=== PATIENT | female | born 1935 | race Caucasian/White ===

== ENCOUNTER 2023-08-27 14:50 | Inpatient (IN) | payer MEDICARE, OTHER ==
[2023-08-27] MEDS ORDERED: Dexamethasone 10 MG/ML VIAL ONE (15:26)
[2023-08-27] MEDS ORDERED: Magnesium 2 GM/50 ML BAG (IN WATER) ONE (15:26)
[2023-08-27] MEDS ORDERED: Albuterol 2.5 MG (3 mL) NEB ONE (15:50)
[2023-08-27] MEDS ORDERED: Ipratropium/Albuterol 3 ML NEB ONE (15:51)
[2023-08-27 15:57] LABS: #Eosinphils 0.2 10x3/uL (0.0-0.5); #Monocytes 0.7 10x3/uL (0.0-1.1); #Neutrophils 3.8 10x3/uL (1.5-8.4); %Basophils 0.6 % (0.0-2.0); %Eosinophils 2.7 % (0.0-6.0); %Lymphocytes 34.6 % (18.0-47.0); %Monocytes 9.1 % (0.0-10.0); Hematocrit 41.7 % (34.9-44.5); Hemoglobin 13.4 g/dL (12.0-15.5); Mean Corpuscular HGB CONC 32.1 g/dL (32.0-36.0); Mean Corpuscular Hemoglobin 30.5 pg (27.0-33.0); Mean Platelet Volume 9.8 fl (7.4-10.4); Platelet Count 330 10x3/uL (150-450); RBC Distribution Width 14.2 % (11.5-14.5); Red Blood Cell (RBC) Count 4.39 10x6/uL (3.90-5.03); White Blood Cell (WBC) Count 7.1 10x3/uL (3.5-10.5)
[2023-08-27 16:05] LABS: ALT (SGPT) 13 U/L (8-55); AST (SGOT) 17 U/L (5-34); Albumin 4.2 g/dL (3.4-4.8); Alkaline Phosphatase 85 U/L (40-110); Anion Gap 12 mmol/L (10-20); BUN (Urea Nitrogen) 18 mg/dL (9.8-20.1); Bilirubin, Total 0.3 mg/dL (0.2-1.2); Calc. Creatinine Clearance 0 mL/min (70-130); Calcium 9.3 mg/dL (7.8-10.44); Carbon Dioxide 30 mmol/L (23-31); Chloride 103 mmol/L (98-107); Estimated GFR 67; Globulin 2.5 g/dL (2.4-3.5); Glucose 105 mg/dL (83-110); Lipase 51 U/L (8-78); Protein, Total 6.7 g/dL (5.8-8.1)
[2023-08-27 16:10] LABS: Troponin I 0.016 ng/mL (< 0.028)
[2023-08-27 16:16] LABS: Potassium 4.3 mmol/L (3.5-5.1); Sodium 141 mmol/L (136-145)
[2023-08-27] MEDS ORDERED: Bisacodyl 5 MG TAB PO PRN (17:43)
[2023-08-27] MEDS ORDERED: Bisacodyl 10 MG SUPP PR PRN (17:43)
[2023-08-27] MEDS ORDERED: Acetaminophen 325 MG TAB PO PRN (17:43)
[2023-08-27] MEDS ORDERED: Ipratropium/Albuterol 3 ML NEB NEB PRN (17:43)
[2023-08-27] MEDS ORDERED: Senokot S 8.6-50 MG TAB PO PRN (17:43)
[2023-08-27] MEDS ORDERED: Ondansetron PF 4 MG/2 ML Vial IVP PRN (17:43)
[2023-08-27] MEDS ORDERED: Furosemide 40 MG (4 mL) VIAL ONE (18:33)
[2023-08-27] MEDS ORDERED: Furosemide 20 MG (2 mL) VIAL SLOW IVP SCH (20:00)
[2023-08-27] MEDS ORDERED: cefTRIAXone\\ROCEPHIN 1 GM in Sodium Chloride 0.9% 100 ML IVPB SCH (20:00)
[2023-08-27] MEDS ORDERED: Mometasone/Formoterol 200/5 60 PUFF INH SCH (20:30)
[2023-08-27] MEDS ORDERED: Ipratropium/Albuterol 3 ML NEB NEB SCH (20:30)
[2023-08-27] MEDS: Famotidine/PF 20 mg/2ml Vial SLOW IVP SCH (20:52)
[2023-08-27] MEDS ORDERED: Zolpidem Tartrate 5 MG TAB PO PRN (22:08)
[2023-08-27 22:57] VITALS: BMI 31.1
[2023-08-27 23:01] LABS: Legionella Urinary Ag Negative (Negative); Strep pneumo Urine Ag NEGATIVE (NEGATIVE)
[2023-08-27 23:46] LABS: SARS-CoV-2 NAA Rapid Test DETECTED (NotDetected)
[2023-08-28] MEDS ORDERED: Ipratropium/Albuterol 3 ML NEB NEB SCH (01:00)
[2023-08-28 04:07] LABS: #Monocytes 0.1 10x3/uL (0.0-1.1); #Neutrophils 4.5 10x3/uL (1.5-8.4); %Basophils 0.2 % (0.0-2.0); %Eosinophils 0.2 % (0.0-6.0); %Lymphocytes 15.9 % (18.0-47.0); %Monocytes 2.5 % (0.0-10.0); Hematocrit 40.9 % (34.9-44.5); Hemoglobin 13.6 g/dL (12.0-15.5); Mean Corpuscular HGB CONC 33.3 g/dL (32.0-36.0); Mean Corpuscular Hemoglobin 30.8 pg (27.0-33.0); Mean Corpuscular Volume 92.5 fl (81.6-98.3); Mean Platelet Volume 9.9 fl (7.4-10.4); Platelet Count 316 10x3/uL (150-450); RBC Distribution Width 14.1 % (11.5-14.5); Red Blood Cell (RBC) Count 4.42 10x6/uL (3.90-5.03); White Blood Cell (WBC) Count 5.6 10x3/uL (3.5-10.5)
[2023-08-28 04:15] LABS: ALT (SGPT) 12 U/L (8-55); AST (SGOT) 17 U/L (5-34); Albumin 3.9 g/dL (3.4-4.8); Alkaline Phosphatase 74 U/L (40-110); Anion Gap 13 mmol/L (10-20); BUN (Urea Nitrogen) 17 mg/dL (9.8-20.1); Bilirubin, Direct 0.1 mg/dL (0.1-0.3); Bilirubin, Total 0.3 mg/dL (0.2-1.2); Calc. Creatinine Clearance 64 mL/min (70-130); Carbon Dioxide 29 mmol/L (23-31); Chloride 101 mmol/L (98-107); Estimated GFR 73; Glucose 144 mg/dL (83-110); Magnesium 2.2 mg/dL (1.6-2.6); Potassium 3.8 mmol/L (3.5-5.1); Protein, Total 6.7 g/dL (5.8-8.1); Sodium 139 mmol/L (136-145)
[2023-08-28] MEDS ORDERED: Ventolin HFA Inhaler 60 PUFF INHALER INH PRN (05:39)
[2023-08-28] MEDS ORDERED: Furosemide 20 MG (2 mL) VIAL SLOW IVP SCH (06:00)
[2023-08-28] MEDS ORDERED: Mometasone/Formoterol 200/5 60 PUFF INH SCH (06:30)
[2023-08-28] MEDS ORDERED: Ventolin HFA Inhaler 60 PUFF INHALER INH SCH (07:00)
[2023-08-28 08:31] LABS: Free T4 (Free Thyroxine) 1.24 ng/dL (0.70-1.48)
[2023-08-28] MEDS ORDERED: predniSONE 20 MG TAB PO SCH (09:00)
[2023-08-28] MEDS ORDERED: Enoxaparin 40 MG (0.4 mL) SYRINGE SC SCH (09:00)
[2023-08-28 09:04] VITALS: BP 133/76; TEMP 96.3
[2023-08-28] MEDS: Famotidine/PF 20 mg/2ml Vial SLOW IVP SCH (10:03)
[2023-08-28] MEDS ORDERED: ALPRAZolam 0.25 MG TAB PO PRN (11:21)
[2023-08-28] MEDS ORDERED: Lorazepam 0.5 MG TAB PO PRN (11:22)
[2023-08-28 16:33] LABS: Hemoglobin A1c 5.7 % (4.0-6.0)
[2023-08-28] MEDS ORDERED: LevoFLOXacin 750 mg/D5W 750 MG in Premix 1 BAG IVPB SCH (17:00)
[2023-08-30 22:37] LABS: Mycoplasma pneumoniae IgG AB 629 U/mL (0-99); Mycoplasma pneumoniae IgM AB Less than 770 U/mL (0-769)
== END 2023-08-28 12:55 | disposition home or self-care (01) | DRG 177 ==
LOC: SUATTDRO 14:50 → CSHERS 14:50 → CSHTELE 16:57
PROVIDERS: ADMIT Family Medicine; ATTEND Family Medicine
PROC: 3E0333Z Introduction of Anti-inflammatory into Peripheral Vein, Percutaneous Approach (ICD-10-PCS; principal; 2023-08-27)
PROC: 8E0ZXY6 Isolation (ICD-10-PCS; 2023-08-27)
DX: U07.1 COVID-19 (principal); I50.33 Acute on chronic diastolic (congestive) heart failure; J96.01 Acute respiratory failure with hypoxia; J12.82 Pneumonia due to coronavirus disease 2019; J44.1 Chronic obstructive pulmonary disease with (acute) exacerbation; Z66 Do not resuscitate; Z51.5 Encounter for palliative care; I25.10 Atherosclerotic heart disease of native coronary artery without angina pectoris; F41.9 Anxiety disorder, unspecified; F32.A Depression, unspecified; E03.9 Hypothyroidism, unspecified; I25.2 Old myocardial infarction; S92.901D Unspecified fracture of right foot, subsequent encounter for fracture with routine healing; Z95.818 Presence of other cardiac implants and grafts; Z88.5 Allergy status to narcotic agent; Z88.0 Allergy status to penicillin; Z88.7 Allergy status to serum and vaccine; Z79.890 Hormone replacement therapy; Z79.2 Long term (current) use of antibiotics; Z79.899 Other long term (current) drug therapy; Z85.51 Personal history of malignant neoplasm of bladder
CPT/HCPCS: 0241U; 36415; 71045; 80048; 80053; 80076; 83036; 83605; 83690; 83735; 83880; 84439; 84443; 84481; 84484; 85025; 86850; 86900; 86901; 87040; 87449; 87899; 93005; 94640; 94664; 94762; J0696; J1100; J1650; J1940; J3475; J3490; J7512; J7611; J7620; S0028

== ENCOUNTER 2023-09-10 21:32 | Emergency (ER) | payer MEDICARE, OTHER ==
[2023-09-11 00:12] LABS: #Eosinphils 0.1 10x3/uL (0.0-0.5); #Monocytes 0.7 10x3/uL (0.0-1.1); #Neutrophils 5.3 10x3/uL (1.5-8.4); %Basophils 0.5 % (0.0-2.0); %Eosinophils 1.1 % (0.0-6.0); %Lymphocytes 21.8 % (18.0-47.0); %Monocytes 9.1 % (0.0-10.0); %Neutrophils 67.2 % (40.0-75.0); Hematocrit 39.1 % (34.9-44.5); Mean Corpuscular HGB CONC 33.2 g/dL (32.0-36.0); Mean Corpuscular Hemoglobin 30.9 pg (27.0-33.0); Mean Corpuscular Volume 92.9 fl (81.6-98.3); Platelet Count 335 10x3/uL (150-450); RBC Distribution Width 13.9 % (11.5-14.5); Red Blood Cell (RBC) Count 4.21 10x6/uL (3.90-5.03); White Blood Cell (WBC) Count 7.9 10x3/uL (3.5-10.5)
[2023-09-11 00:28] LABS: ALT (SGPT) 10 U/L (8-55); AST (SGOT) 18 U/L (5-34); Albumin 3.7 g/dL (3.4-4.8); Alkaline Phosphatase 76 U/L (40-110); Anion Gap 17 mmol/L (10-20); BUN (Urea Nitrogen) 12 mg/dL (9.8-20.1); Bilirubin, Total 0.4 mg/dL (0.2-1.2); Calc. Creatinine Clearance 0 mL/min (70-130); Calcium 9.1 mg/dL (7.8-10.44); Carbon Dioxide 25 mmol/L (23-31); Chloride 103 mmol/L (98-107); Estimated GFR 70; Globulin 2.5 g/dL (2.4-3.5); Glucose 87 mg/dL (83-110); Potassium 3.5 mmol/L (3.5-5.1); Protein, Total 6.2 g/dL (5.8-8.1); Sodium 141 mmol/L (136-145)
[2023-09-11 00:56] LABS: Bilirubin Neg (Negative); Blood, Urine 250 (Negative); Clarity Cloudy (Clear); Glucose, Urine (Dipstick) Normal (Negative); Ketone, Urine 150 mg/dL (Negative); Leukocyte 100 (Negative); Nitrite Negative (Negative); Protein, Urine (Dipstick) 100 mg/dl (Neg-Trace); Specific Gravity, Urine 1.025 (1.005-1.030); Urobilinogen Normal mg/dL (Less than 2)
[2023-09-11 01:07] LABS: Bacteria/HPF Rare-Few HPF (None Seen); CAUTI Indications for Culture Alt mental st,lethar; RBC/HPF Greater than 50 HPF (0-3); Squamous Epithelial 0-3 HPF (0-3); Urine Culture Reflex No No
[2023-09-11] MEDS ORDERED: Cephalexin 250 MG CAP ONE (02:51)
[2023-09-11] MEDS ORDERED: QUEtiapine 25 MG TAB ONE (04:38)
== END 2023-09-11 05:56 | disposition home or self-care (01) ==
LOC: CSHERS 21:32
DX: N39.0 Urinary tract infection, site not specified (principal); J44.9 Chronic obstructive pulmonary disease, unspecified; Z87.891 Personal history of nicotine dependence
CPT/HCPCS: 36415; 80053; 81001; 83605; 84443; 85025; 93005

== ENCOUNTER 2023-09-11 08:48 | Inpatient (IN) | payer MEDICARE, OTHER ==
[2023-09-11] MEDS ORDERED: Lorazepam 2 MG/ML VIAL ONE ×2 (10:00→16:37)
[2023-09-11] MEDS ORDERED: Haloperidol Lactate 5 MG/ML VIAL ONE ×2 (10:01→10:06)
[2023-09-11] MEDS ORDERED: diphenhydrAMINE 50 MG/ML VIAL ONE (10:01)
[2023-09-11] MEDS ORDERED: cefTRIAXone (ROCEPHIN) 2 GM VIAL ONE (10:53)
[2023-09-11 11:17] LABS: #Eosinphils 0.1 10x3/uL (0.0-0.5); #Monocytes 0.8 10x3/uL (0.0-1.1); #Neutrophils 6.2 10x3/uL (1.5-8.4); %Basophils 0.3 % (0.0-2.0); %Eosinophils 0.9 % (0.0-6.0); %Lymphocytes 20.4 % (18.0-47.0); %Monocytes 9.1 % (0.0-10.0); %Neutrophils 69.1 % (40.0-75.0); Hematocrit 42.8 % (34.9-44.5); Hemoglobin 14.5 g/dL (12.0-15.5); Mean Corpuscular HGB CONC 33.9 g/dL (32.0-36.0); Mean Corpuscular Hemoglobin 31.3 pg (27.0-33.0); Mean Corpuscular Volume 92.4 fl (81.6-98.3); Mean Platelet Volume 10.1 fl (7.4-10.4); Platelet Count 366 10x3/uL (150-450); RBC Distribution Width 13.9 % (11.5-14.5); Red Blood Cell (RBC) Count 4.63 10x6/uL (3.90-5.03)
[2023-09-11 11:37] LABS: ALT (SGPT) 13 U/L (8-55); AST (SGOT) 23 U/L (5-34); Alkaline Phosphatase 95 U/L (40-110); Anion Gap 20 mmol/L (10-20); BUN (Urea Nitrogen) 11 mg/dL (9.8-20.1); Bilirubin, Total 0.6 mg/dL (0.2-1.2); Calc. Creatinine Clearance 0 mL/min (70-130); Calcium 9.7 mg/dL (7.8-10.44); Carbon Dioxide 22 mmol/L (23-31); Chloride 103 mmol/L (98-107); Estimated GFR 70; Glucose 92 mg/dL (83-110); Potassium 3.5 mmol/L (3.5-5.1); Sodium 141 mmol/L (136-145)
[2023-09-12] MEDS ORDERED: QUEtiapine 25 MG TAB ONE (08:25)
[2023-09-12] MEDS ORDERED: Famotidine 20 MG TAB ONE (08:27)
[2023-09-12 11:13] LABS: #Eosinphils 0.2 10x3/uL (0.0-0.5); #Monocytes 0.7 10x3/uL (0.0-1.1); #Neutrophils 4.7 10x3/uL (1.5-8.4); %Basophils 0.4 % (0.0-2.0); %Eosinophils 2.1 % (0.0-6.0); %Lymphocytes 25.6 % (18.0-47.0); %Neutrophils 62.6 % (40.0-75.0); Hematocrit 39.7 % (34.9-44.5); Hemoglobin 13.4 g/dL (12.0-15.5); Mean Corpuscular HGB CONC 33.8 g/dL (32.0-36.0); Mean Corpuscular Hemoglobin 31.2 pg (27.0-33.0); Mean Corpuscular Volume 92.5 fl (81.6-98.3); Mean Platelet Volume 9.9 fl (7.4-10.4); Platelet Count 352 10x3/uL (150-450); RBC Distribution Width 14.2 % (11.5-14.5); Red Blood Cell (RBC) Count 4.29 10x6/uL (3.90-5.03); White Blood Cell (WBC) Count 7.6 10x3/uL (3.5-10.5)
[2023-09-12 11:30] LABS: ALT (SGPT) 8 U/L (8-55); AST (SGOT) 20 U/L (5-34); Albumin 3.7 g/dL (3.4-4.8); Alkaline Phosphatase 75 U/L (40-110); Anion Gap 15 mmol/L (10-20); BUN (Urea Nitrogen) 9 mg/dL (9.8-20.1); Bilirubin, Total 0.4 mg/dL (0.2-1.2); Calc. Creatinine Clearance 0 mL/min (70-130); Calcium 8.7 mg/dL (7.8-10.44); Carbon Dioxide 26 mmol/L (23-31); Chloride 107 mmol/L (98-107); Estimated GFR 68; Globulin 2.1 g/dL (2.4-3.5); Glucose 85 mg/dL (83-110); Lipase 23 U/L (8-78); Magnesium 1.9 mg/dL (1.6-2.6); Potassium 3.6 mmol/L (3.5-5.1); Protein, Total 5.8 g/dL (5.8-8.1); Sodium 144 mmol/L (136-145)
[2023-09-12 11:40] LABS: Actual Bicarbonate (HCO3v) 28.1 mEq/L (22-28); Analyzer IN Cardio CS ER; Base Excess 2.2 mEq/L (-2 - +2); Calcium, Ionized (venous) 1.18 mmol/L (1.16-1.32); Chloride (VBG) 103 mmol/L (98-106); Hematocrit-VBG 41 % (36.0-47.0); Hemoglobin (Hb) 13.9 g/dL (11.7-16.1); Potassium (VBG) 3.22 mmol/L (3.70-5.30); Puncture Site Other Site; Sodium 144 mmol/L (133-146)
[2023-09-12 11:48] LABS: Troponin I 0.012 ng/mL (< 0.028)
[2023-09-12] MEDS ORDERED: cefTRIAXone (ROCEPHIN) 2 GM VIAL ONE (11:52)
[2023-09-12] MEDS ORDERED: methylPREDNISolone Sod Succ/PF 125 MG/2 ML VIAL ONE (12:09)
[2023-09-12] MEDS ORDERED: Ipratropium/Albuterol 3 ML NEB ONE (12:15)
[2023-09-12 12:16] LABS: Bilirubin Neg (Negative); Blood, Urine 10 (Negative); Clarity Slightly Cloudy (Clear); Glucose, Urine (Dipstick) Normal (Negative); Ketone, Urine 150 mg/dL (Negative); Leukocyte Negative (Negative); Nitrite Negative (Negative); Protein, Urine (Dipstick) 30 mg/dl (Neg-Trace); Urobilinogen Normal mg/dL (Less than 2)
[2023-09-12 12:48] LABS: CAUTI Indications for Culture Fever or rigors; RBC/HPF 0-3 HPF (0-3)
[2023-09-12 12:49] LABS: Bacteria/HPF Rare-Few HPF (None Seen); Transitional Epithelial 0-3 HPF (None Seen)
[2023-09-12 12:51] LABS: Urine Culture Reflex No No
[2023-09-12] MEDS ORDERED: Ipratropium/Albuterol 3 ML NEB NEB PRN (15:35)
[2023-09-12] MEDS: Sodium Chloride 0.9% 1,000 ML IV SCH (19:27)
[2023-09-12] MEDS: Famotidine 20 MG TAB PO SCH (20:29)
[2023-09-12] MEDS: Levothyroxine Sodium 112 MCG TAB PO SCH (23:26)
[2023-09-12] MEDS: Melatonin 3 MG TAB PO SCH (23:30)
[2023-09-13 05:53] VITALS: BMI 29.2
[2023-09-13] MEDS: Aspirin 81 mg Enteric Coated Tablet PO SCH (08:27)
[2023-09-13] MEDS: Acetaminophen 325 MG TAB PO PRN (11:00)
[2023-09-13] MEDS: cefTRIAXone\\ROCEPHIN 1 GM in Sodium Chloride 0.9% 100 ML IVPB SCH (11:01)
[2023-09-13] MEDS: Lorazepam 0.5 MG TAB PO SCH (21:14)
[2023-09-13] MEDS: Citalopram 20 MG TAB PO SCH (21:15)
[2023-09-14 08:37] LABS: #Eosinphils 0.1 10x3/uL (0.0-0.5); #Monocytes 0.9 10x3/uL (0.0-1.1); #Neutrophils 5.3 10x3/uL (1.5-8.4); %Basophils 0.5 % (0.0-2.0); %Eosinophils 1.2 % (0.0-6.0); %Lymphocytes 27.4 % (18.0-47.0); %Monocytes 9.9 % (0.0-10.0); %Neutrophils 60.9 % (40.0-75.0); Hematocrit 42.5 % (34.9-44.5); Mean Corpuscular HGB CONC 32.9 g/dL (32.0-36.0); Mean Corpuscular Hemoglobin 30.2 pg (27.0-33.0); Mean Corpuscular Volume 91.6 fl (81.6-98.3); Mean Platelet Volume 9.8 fl (7.4-10.4); Platelet Count 430 10x3/uL (150-450); Red Blood Cell (RBC) Count 4.64 10x6/uL (3.90-5.03); White Blood Cell (WBC) Count 8.7 10x3/uL (3.5-10.5)
[2023-09-14 08:44] LABS: Anion Gap 15 mmol/L (10-20); BUN (Urea Nitrogen) 15 mg/dL (9.8-20.1); Calc. Creatinine Clearance 62 mL/min (70-130); Calcium 9.4 mg/dL (7.8-10.44); Carbon Dioxide 23 mmol/L (23-31); Chloride 107 mmol/L (98-107); Estimated GFR 73; Glucose 102 mg/dL (83-110); Potassium 3.2 mmol/L (3.5-5.1); Sodium 142 mmol/L (136-145)
[2023-09-14] MEDS: clonazePAM 0.5 MG TAB PO SCH ×2 (09:31→20:26)
[2023-09-14] MEDS: Famotidine 20 MG TAB PO SCH ×2 (09:32→20:26)
[2023-09-14] MEDS: Potassium Chloride 20 MEQ TAB PO SCH (12:20)
[2023-09-15] MEDS ORDERED: Ipratropium/Albuterol 3 ML NEB NEB PRN (08:08)
[2023-09-15] MEDS: Levothyroxine Sodium 112 MCG TAB PO SCH (09:02)
[2023-09-15] MEDS: Famotidine 20 MG TAB PO SCH (09:02)
[2023-09-15] MEDS: QUEtiapine 25 MG TAB PO SCH (09:05)
[2023-09-15] MEDS: Hyoscyamine SL 0.125 MG TAB PO SCH (09:05)
[2023-09-15 09:35] LABS: #Eosinphils 0.2 10x3/uL (0.0-0.5); #Monocytes 0.8 10x3/uL (0.0-1.1); #Neutrophils 3.1 10x3/uL (1.5-8.4); %Basophils 0.6 % (0.0-2.0); %Eosinophils 2.9 % (0.0-6.0); %Lymphocytes 38.9 % (18.0-47.0); %Monocytes 11.6 % (0.0-10.0); %Neutrophils 45.7 % (40.0-75.0); Hematocrit 40.2 % (34.9-44.5); Hemoglobin 13.6 g/dL (12.0-15.5); Mean Corpuscular HGB CONC 33.8 g/dL (32.0-36.0); Mean Corpuscular Hemoglobin 31.1 pg (27.0-33.0); Mean Platelet Volume 10.5 fl (7.4-10.4); Platelet Count 384 10x3/uL (150-450); RBC Distribution Width 14.1 % (11.5-14.5); Red Blood Cell (RBC) Count 4.37 10x6/uL (3.90-5.03); White Blood Cell (WBC) Count 6.8 10x3/uL (3.5-10.5)
[2023-09-15 10:05] LABS: Anion Gap 13 mmol/L (10-20); BUN (Urea Nitrogen) 17 mg/dL (9.8-20.1); Calc. Creatinine Clearance 61 mL/min (70-130); Calcium 9.3 mg/dL (7.8-10.44); Carbon Dioxide 28 mmol/L (23-31); Chloride 106 mmol/L (98-107); Estimated GFR 72; Glucose 97 mg/dL (83-110); Potassium 3.6 mmol/L (3.5-5.1); Sodium 143 mmol/L (136-145)
[2023-09-15] MEDS: Citalopram 20 MG TAB PO SCH (20:17)
[2023-09-16] MEDS: Levothyroxine Sodium 112 MCG TAB PO SCH (05:50)
[2023-09-18 11:58] VITALS: BP 190/86; TEMP 98.3
== END 2023-09-18 14:03 | disposition home or self-care (01) | DRG 92 ==
LOC: CSHERS 08:48 → CSHERHOLD 09-12 12:45 → CSHTELE 09-12 14:49 → OBSVTOIN 09-14 08:10
PROVIDERS: ADMIT Internal Medicine; ATTEND Internal Medicine
DX: G92.8 Other toxic encephalopathy (principal); J44.1 Chronic obstructive pulmonary disease with (acute) exacerbation; E03.9 Hypothyroidism, unspecified; I25.10 Atherosclerotic heart disease of native coronary artery without angina pectoris; C67.9 Malignant neoplasm of bladder, unspecified; I25.2 Old myocardial infarction; Z88.5 Allergy status to narcotic agent; Z66 Do not resuscitate; Z91.040 Latex allergy status; Z88.0 Allergy status to penicillin; Z88.6 Allergy status to analgesic agent; Z79.899 Other long term (current) drug therapy; F41.9 Anxiety disorder, unspecified; F32.A Depression, unspecified; Z90.710 Acquired absence of both cervix and uterus; Z90.49 Acquired absence of other specified parts of digestive tract; Z79.82 Long term (current) use of aspirin; E87.6 Hypokalemia; T42.4X5A Adverse effect of benzodiazepines, initial encounter; K21.9 Gastro-esophageal reflux disease without esophagitis
CPT/HCPCS: 36415; 70450; 80048; 80053; 81001; 82140; 82805; 83605; 83690; 83735; 83880; 84443; 84484; 85025; 87040; 94640; 94760; 96372; 96374; 96375; 96376; G0378; J0696; J1200; J1630; J2060; J2930; J3490; J7050; J7620